=== PATIENT | female | born 1945 | race Caucasian/White ===

== ENCOUNTER 2016-06-14 11:38 | Emergency (ER) | payer OTHER ==
[2016-06-14 11:43] VITALS: BP 138/57; BMI 21.6
--- NOTE | 2016-06-14 12:46 | DR.GENAD ---
HPI - PCP Primary Care Physician: PRANAV - HPI Comment HPI Comment: patients medication prescribe keeps pain under control. she is weak , not eating good and feel dehydrated. no fever. - Complaint/Symptoms Chief Complaint Doctors Comments: generalize weakness and fatigue and dehydration. rib pain/rt Chief Complaint:: PATIENT STATED SHE HAS NOT BEEN ABLE TO EAT DUE TO HER PAIN IN HER RIBS. SHE GOT HER PAIN MEDS FILLED YESTERDAY WITH DR GEORGES. - Nurses notes reviewed Nurses Notes Review: Yes - Source History Provided: Patient - Mode of Arrival Mode of Arrival: Ambulatory - Timing Onset of Chief Complaint: 06/11/16 Came on: Gradually - Duration Duration: Constant Duration: Days - Severity Severity: Moderate PMH - PMH Past Medical History: Yes Past Medical History: Arthritis Past Surgical History: Yes Surgical History: Cholecystectomy - Family History History of Family Medical Conditions: Yes Family Medical History: Cancer, Heart Failure, Hypertension - Social History Does patient currently use any type of tobacco product: No Have you used tobacco products in the last 12 months: No Type of Tobacco Use: None Does any household member use tobacco: No Alcohol Use: None Do you use any recreational Drugs:: No Lives With: Family Lives Where: Home - infectious screening In the last 2 months have you had wt loss of >10#?: NO Have you had fever, night sweats or hemotysis?: No Have you traveled outside the country in the last 6 months?: No Isolation: Standard ROS - Review of Systems Constitutional: Weakness, Fatigue, Loss of Appetite. negative: Chills, Fever Eyes: No Symptoms Reported. negative: Eye Pain, Blurred Vision, Discharge, Diplopia ENTM: No Symptoms Reported. negative: Ear Pain, Nose Discharge, Nose Congestion , Throat Pain Respiratoy: Dry Cough. negative: Short of Breath, Wheezing, Hemoptysis Cardiovascular: Chest Pain. negative: Syncope Gastrointestinal/Abdominal: No Symptoms Reported Genitourinary: No Symptoms Reported Neurological: Weakness, Dizziness. negative: Headache Musculoskeletal: Muscle Pain Integumentary: No Symptoms Reported Hematologic/Lymphatic: No Symptoms Reported Endocrine: No Symptoms Reported All Other Systems: Reviewed and Negative PE - Vital Signs Vitals: Temperature 98.6 F Pulse Rate 96 Respiratory Rate 16 Blood Pressure 138/57 O2 Sat by Pulse Oximetry 99 - General Limitations: No Limitations General Appearance: Alert - Head Head Exam: Normal Inspection - Eyes Eye exam: Normal Appearance - ENT ENT Exam: Normal External Ear Exam External Ear Exam: Normal External Inspection TM/Canal Exam: Bilateral Normal Nose Exam: Normal Nose Exam Mouth Exam: Normal Inspection Throat Exam: Normal Inspection - Neck Neck Exam: Normal Inspection - Chest Chest Inspection: Symmetric Chest Wall Rise - Respiratory Respiratory Exam: Normal Lung Sounds Bilat, Chest Wall Tenderness Respiratory Exam: Bilateral Rhonchi, Lower Rhonchi - Cardiovascular Cardiovascular Exam: Regular Rate, Normal Rhythm, Normal Heart Sounds - Abdominal Exam Abdominal Exam: Normal Bowel Sounds, Soft. negative: Tenderness - Extremities Extremities Exam: Normal Inspection - Back Back Exam: Normal Inspection, Tenderness (upper right back) - Neurologic Neurological Exam: Alert, Oriented X3 - Psychiatric Psychiatric Exam: Normal Affect, Normal Mood - Skin Skin Exam: Dry MDM - Differential Diagnosis Differential Diagnosis: weakness/generalize, dehydration, chest wall pain Course - Treatment Treatment: see orders. - Education/Counseling Education/Counseling: Patient, Education Educated On: Diagnosis, Needs for Follow Up ROR - Labs Reviewed Laboratory Results Reviewed?: Yes Result Diagrams: 06/14/16 13:10 06/14/16 13:10 Laboratory: WBC 6.8 X10^3/uL (3.6-10.0) 06/14/16 13:10 RBC 4.91 X10^6/uL (3.5-5.4) 06/14/16 13:10 Hgb 14.5 g/dL (12.0-16.0) 06/14/16 13:10 Hct 43.0 % (36.0-47.0) 06/14/16 13:10 MCV 87.5 fL (80.0-100.0) 06/14/16 13:10 MCH 29.5 pg (27.0-34.0) 06/14/16 13:10 MCHC 33.7 g/dL (33.0-35.0) 06/14/16 13:10 RDW 14.1 % (11.6-16.5) 06/14/16 13:10 Plt Count 333 X10^3/uL (150.0-450.0) 06/14/16 13:10 MPV 7.6 fL (7.4-11.0) 06/14/16 13:10 Neut % 62.0 % (42.0-75.0) 06/14/16 13:10 Lymph % 25.3 % (21.0-51.0) 06/14/16 13:10 [place] % 7.2 % (0.0-13.0) 06/14/16 13:10 Eos % 2.2 % (0.9-2.9) 06/14/16 13:10 Baso % 3.3 % (0.2-1.0) H 06/14/16 13:10 Neut # 4.2 x10^3/uL (2.2-4.8) 06/14/16 13:10 Lymph # 1.7 X10^3/uL (1.3-2.9) 06/14/16 13:10 [place] # 0.5 x10^3/uL (0.3-0.8) 06/14/16 13:10 Eos # 0.1 x10^3/uL (0.0-0.2) 06/14/16 13:10 Baso # 0.2 X10^3/uL (0.0-0.1) H 06/14/16 13:10 Absolute Nucleated RBC 0.1 /100WBC 06/14/16 13:10 Sodium 139 mmol/L (136-145) 06/14/16 13:10 Corrected Sodium TNP 06/14/16 13:10 Potassium 3.5 mmol/L (3.5-5.1) 06/14/16 13:10 Chloride 103 mmol/L (98-107) 06/14/16 13:10 Carbon Dioxide 27.0 mmol/L (21-32) 06/14/16 13:10 BUN 20 mg/dL (7-18) H 06/14/16 13:10 Creatinine 0.97 mg/dL (0.55-1.02) 06/14/16 13:10 Est GFR (MDRD) Af Amer > 60 (>60) 06/14/16 13:10 Est GFR (MDRD) Non-Af 60 (>60) 06/14/16 13:10 Glucose 89 mg/dL (65-99) 06/14/16 13:10 Calcium 9.4 mg/dL (8.5-10.1) 06/14/16 13:10 Corrected Calcium TNP 06/14/16 13:10 Total Bilirubin 0.30 mg/dL (0.2-1.0) 06/14/16 13:10 AST 23 Units/L (15-37) 06/14/16 13:10 ALT 26 Units/L (12-78) 06/14/16 13:10 Alkaline Phosphatase 82 Units/L (46-116) 06/14/16 13:10 Creatine Kinase 34 Units/L (26-192) 06/14/16 13:10 CK-MB (CK-2) < 1.0 ng/mL (0-4.0) 06/14/16 13:10 CK/CKMB % Calc 2.9 % (<4) 06/14/16 13:10 Troponin I < 0.02 ng/mL (0-1.5) 06/14/16 13:10 Total Protein 7.6 g/dL (6.4-8.2) 06/14/16 13:10 Albumin 3.6 g/dL (3.4-5.0) 06/14/16 13:10 Globulin 4.0 g/dL (2.5-4.5) 06/14/16 13:10 Albumin/Globulin Ratio 0.9 Ratio (1.1-2.1) L 06/14/16 13:10 Specimen Type Clean catch urine 06/14/16 15:05 Urine Color Yellow (YELLOW) 06/14/16 15:05 Urine Appearance Clear (CLEAR) 06/14/16 15:05 Urine pH 5.0 (5.0 - 8.0) 06/14/16 15:05 Ur Specific [place] 1.015 (1.000-1.030) 06/14/16 15:05 Urine Protein Negative (NEGATIVE) 06/14/16 15:05 Urine Glucose (UA) Negative (NEGATIVE) 06/14/16 15:05 Urine Ketones 1+ (NEGATIVE) 06/14/16 15:05 Urine Occult Blood Negative (NEGATIVE) 06/14/16 15:05 Urine Nitrite Negative (NEGATIVE) 06/14/16 15:05 Urine Bilirubin Negative (NEGATIVE) 06/14/16 15:05 Urine Urobilinogen Normal (NORMAL) 06/14/16 15:05 Ur Leukocyte Esterase Negative (NEGATIVE) 06/14/16 15:05 Urine RBC 0-2 /HPF (NEGATIVE) 06/14/16 15:05 Urine WBC 0-2 /HPF (NEGATIVE) 06/14/16 15:05 Ur Squamous Epith Cells Rare /HPF (NEGATIVE) 06/14/16 15:05 Urine Bacteria Trace /HPF (NEGATIVE) 06/14/16 15:05 Ur Culture Indicated? No/not indicated 06/14/16 15:05 - XRAY XRAY Interpreted by: Radiologist XRAY Findings: report discuss with patient. - EKG Rhythm: NSR (ekg noted), PACs - Diagnosis Discharge Problem: Dehydration, Weakness, Chest wall pain Rib fractures Qualifiers: Encounter type: subsequent encounter Rib fracture type: multiple ribs Fracture type: closed Laterality: right Fracture healing: with routine healing Qualified Code(s): S22.41XD - Multiple fractures of ribs, right side, subsequent encounter for fracture with routine healing - Discharge Plan Disposition: 01 HOME, SELF-CARE Condition: Stable - Follow ups/Referrals Follow ups/Referrals: CARINA BAUTISTA [Primary Care Provider] - 2 days - Instructions Instructions: Dehydration, Adult, Rib Fracture, [id number], Weakness, Easy-to -Read, Chest Wall Pain, [id number] Additional Instructions: RETURN TO ED IF WORSE. CONTINUE WITH MEDS YOU HAVE AT HOME.
[2016-06-14] MEDS ORDERED: NS 1000 ML 1,000 ML IV SCH (13:00)
[2016-06-14] MEDS ORDERED: NS 1000 ML 1,000 ML ONE (13:13)
[2016-06-14 13:26] LABS: BASOPHILS # (AUTO) 0.2 X10^3/uL (0.0-0.1); BASOPHILS % (AUTO) 3.3 % (0.2-1.0); EOSINOPHILS # (AUTO) 0.1 x10^3/uL (0.0-0.2); EOSINOPHILS % (AUTO) 2.2 % (0.9-2.9); HEMOGLOBIN 14.5 g/dL (12.0-16.0); LYMPHOCYTES # (AUTO) 1.7 X10^3/uL (1.3-2.9); LYMPHOCYTES % (AUTO) 25.3 % (21.0-51.0); MEAN CORPUSCULAR HEMOGLOBIN 29.5 pg (27.0-34.0); MEAN CORPUSCULAR HGB CONC 33.7 g/dL (33.0-35.0); MEAN CORPUSCULAR VOLUME 87.5 fL (80.0-100.0); MEAN PLATELET VOLUME 7.6 fL (7.4-11.0); MONOCYTES # (AUTO) 0.5 x10^3/uL (0.3-0.8); MONOCYTES % (AUTO) 7.2 % (0.0-13.0); NEUTROPHILS # (AUTO) 4.2 x10^3/uL (2.2-4.8); PLATELET COUNT 333 X10^3/uL (150.0-450.0); RED BLOOD COUNT 4.91 X10^6/uL (3.5-5.4); RED CELL DISTRIBUTION WIDTH 14.1 % (11.6-16.5); WHITE BLOOD COUNT 6.8 X10^3/uL (3.6-10.0)
[2016-06-14 13:38] LABS: BLOOD UREA NITROGEN 20 mg/dL (7-18); CALCIUM 9.4 mg/dL (8.5-10.1); CHLORIDE 103 mmol/L (98-107); CREATININE 0.97 mg/dL (0.55-1.02); GLUCOSE 89 mg/dL (65-99); SODIUM 139 mmol/L (136-145); TROPONIN I < 0.02 ng/mL (0-1.5); eGFR BLACK RACES > 60 (>60); eGFR NON BLACK RACES 60 (>60)
[2016-06-14 13:43] LABS: ALANINE AMINOTRANSFERASE 26 Units/L (12-78); ALBUMIN 3.6 g/dL (3.4-5.0); ALKALINE PHOSPHATASE 82 Units/L (46-116); ASPARTATE AMINO TRANSFERASE 23 Units/L (15-37); CKMB % 2.9 % (<4); CREATINE KINASE 34 Units/L (26-192); CREATINE KINASE MB < 1.0 ng/mL (0-4.0); TOTAL PROTEIN 7.6 g/dL (6.4-8.2)
--- NOTE | 2016-06-14 13:59 | RAD ---
Examination: Chest x-ray. Clinical history: Fall on 06/03/2016 with diagnosis of rib fracture, complaining of nausea, weakness, dehydration. Technique: A single portable AP view of the chest was obtained. Comparison: 06/03/2016. Findings: The cardiac and mediastinal contours are within normal limits. No pneumothorax or pleural effusion is noted. The lungs are clear. There are mildly displaced fractures of the posterior right 5th, 6th, 7th and 8th ribs, with no asso ciated periosteal reaction or callus formation noted at the fracture sites. Degenerative changes are noted in the spine. Impression: 1. No acute cardiopulmonary pathology. 2. Fractures of the posterior right 5th, 6th, 7th and 8th ribs. Reported By:
[2016-06-14 15:34] LABS: APPEARANCE,URINE CLEAR (CLEAR); BILIRUBIN,URINE NEGATIVE (NEGATIVE); BLOOD/HEMOGLOBIN,URINE NEGATIVE (NEGATIVE); COLOR,URINE YELLOW (YELLOW); GLUCOSE, URINE NEGATIVE (NEGATIVE); KETONES,URINE 1+ (NEGATIVE); LEUKOCYTE ESTERASE ,URINE NEGATIVE (NEGATIVE); NITRITES,URINE NEGATIVE (NEGATIVE); PROTEIN,URINE NEGATIVE (NEGATIVE); RBC,URINE 0-2 /HPF (NEGATIVE); UROBILINOGEN,URINE NORMAL (NORMAL)
[2016-06-14 15:35] LABS: BACTERIA,URINE TRACE /HPF (NEGATIVE); SQUAMOUS EPITHELIAL CELL,UR RARE /HPF (NEGATIVE)
== END 2016-06-14 16:06 | disposition home or self-care (01) ==
LOC: ER 11:38
DX: S22.41XD Multiple fractures of ribs, right side, subsequent encounter for fracture with routine healing (principal); R07.89 Other chest pain; R53.1 Weakness; E86.0 Dehydration; Y33.XXXA Other specified events, undetermined intent, initial encounter; Y92.9 Unspecified place or not applicable
CPT/HCPCS: 36415; 71010; 80053; 81001; 82550; 82553; 84484; 85025; 93005; 93010; 96365; 99283; A4222

== ENCOUNTER 2017-04-17 18:26 | Emergency (ER) | payer OTHER ==
[2017-04-17 18:31] VITALS: BMI 22.1
--- NOTE | 2017-04-17 21:58 | DR.GENAD ---
HPI - PCP Primary Care Physician: tamera - Complaint/Symptoms Chief Complaint Doctors Comments: Patient was started on Tamiflu on last secondary to family member with influenza. Today she started taking antibiotics for sinus infection and cough and congestion. She denies fever, vomiting or diarrhea. Chief Complaint:: c/c/c since yesterday pt took tamiflu last week finished it today - Source History Provided: Patient - Mode of Arrival Mode of Arrival: Ambulatory - Timing Onset of Chief Complaint: 04/16/17 PMH - PMH Past Medical History: Yes Past Medical History: Arthritis, GERD Past Surgical History: Yes Surgical History: Cholecystectomy - Family History History of Family Medical Conditions: Yes Family Medical History: Cancer, Heart Failure, Hypertension - Social History Do you use any recreational Drugs:: No Lives With: Family Lives Where: Home - infectious screening In the last 2 months have you had wt loss of >10#?: NO Have you had fever, night sweats or hemotysis?: No Have you traveled outside the country in the last 6 months?: No Isolation: Standard ROS - Review of Systems Constitutional: No Symptoms Reported Eyes: No Symptoms Reported ENTM: No Symptoms Reported Respiratoy: Non-Productive Cough Cardiovascular: No Symptoms Reported Gastrointestinal/Abdominal: No Symptoms Reported Genitourinary: No Symptoms Reported Neurological: No Symptoms Reported Musculoskeletal: No Symptoms Reported Integumentary: No Symptoms Reported Hematologic/Lymphatic: No Symptoms Reported Endocrine: No Symptoms Reported Psychiatric: No Symptoms Reported All Other Systems: Reviewed and Negative PE - Vital Signs Vitals: Temperature 99.1 F Pulse Rate 86 Respiratory Rate 18 Blood Pressure 118/57 O2 Sat by Pulse Oximetry 99 - General Limitations: No Limitations General Appearance: Alert, In No Apparent Distress - Head Head Exam: Normal Inspection, Atraumatic - Eyes Eye exam: Normal Appearance, PERRL, EOMI - ENT ENT Exam: Normal Exam External Ear Exam: Normal External Inspection TM/Canal Exam: Bilateral Normal Nose Exam: Other (rhinorrhea) Mouth Exam: Normal Inspection Throat Exam: Normal Inspection - Neck Neck Exam: Normal Inspection, Full ROM - Chest Chest Inspection: Normal Inspection, Symmetric Chest Wall Rise - Respiratory Respiratory Exam: Normal Lung Sounds Bilat, Accessory Muscle Use - Cardiovascular Cardiovascular Exam: Regular Rate, Normal Rhythm - Abdominal Exam Abdominal Exam: Normal Inspection, Normal Bowel Sounds Abdominal Tenderness: negative: RUQ, RLQ, LUQ, LLQ, Epigastrium, Suprapubic, Diffuse, Mild, Moderate, Severe, Other - Extremities Extremities Exam: Normal Inspection, Full ROM - Back Back Exam: Normal Inspection - Neurologic Neurological Exam: Alert, Oriented X3, CN II-XII Intact - Psychiatric Psychiatric Exam: Normal Affect, Normal Mood - Skin Skin Exam: Warm, Dry, Intact Course - Reevaluation 1st: Unchanged ROR - XRAY XRAY Interpreted by: Radiologist (Chest: No cardiopulmonary abnormality) - Diagnosis Discharge Problem: Sinus infection Qualifiers: Sinusitis location: maxillary Chronicity: subacute Qualified Code(s): J01.00 - Acute maxillary sinusitis, unspecified - Discharge Plan Condition: Stable - Follow ups/Referrals Follow ups/Referrals: NFD,None [Primary Care Provider] - 3 days - Instructions
--- NOTE | 2017-04-17 22:04 | RAD ---
CHEST RADIOGRAPHS PA AND LATERAL VIEWS CLINICAL HISTORY: 71-year-old female with cough and congestion with fever. COMPARISON: Chest radiograph 06/14/2016. FINDINGS: The cardiopericardial silhouette is stable. There is no focal consolidation, pleural effus ion or pneumothorax. The lungs are well inflated. Pulmonary vascularity is normal. Imaged osseous str uctures are intact. Soft tissues are unremarkable. IMPRESSION: No acute cardiopulmonary process. Reported By:
[2017-04-17] MEDS ORDERED: ROCEPHIN VIAL 1 GM IM ONE (22:26)
[2017-04-17] MEDS ORDERED: ROCEPHIN VIAL 1 GM ONE (22:28)
[2017-04-17 22:44] VITALS: BP 161/70
== END 2017-04-17 22:44 | disposition home or self-care (01) ==
LOC: ER 18:36
DX: J01.80 Other acute sinusitis (principal)
CPT/HCPCS: 71046; 96372; 99282; J0696

== ENCOUNTER 2024-06-25 11:24 | Inpatient (IN) ==
[2024-06-25] MEDS: NS 1,000 ML IV 1,000 ML IV ONE ×2 (12:01→13:18)
[2024-06-25 12:15] LABS: BASOPHILS # (AUTO) 0.1 X10^3/uL (0.0-0.1); BASOPHILS % (AUTO) 0.7 % (0.2-1.0); EOSINOPHILS # (AUTO) 0.1 x10^3/uL (0.0-0.2); EOSINOPHILS % (AUTO) 0.4 % (0.9-2.9); HEMATOCRIT 23.6 % (36.0-47.0); LYMPHOCYTES # (AUTO) 0.5 X10^3/uL (1.3-2.9); LYMPHOCYTES % (AUTO) 3.3 % (21.0-51.0); MEAN CORPUSCULAR HEMOGLOBIN 29.5 pg (27.0-34.0); MEAN CORPUSCULAR HGB CONC 33.8 g/dL (33.0-35.0); MEAN CORPUSCULAR VOLUME 87.2 fL (80.0-100.0); MEAN PLATELET VOLUME 7.1 fL (7.4-11.0); MONOCYTES # (AUTO) 0.8 x10^3/uL (0.3-0.8); MONOCYTES % (AUTO) 5.7 % (0.0-13.0); NEUTROPHILS # (AUTO) 12.6 x10^3/uL (2.2-4.8); NEUTROPHILS % (AUTO) 89.9 % (42.0-75.0); PLATELET COUNT 562 X10^3/uL (150.0-450.0); RED CELL DISTRIBUTION WIDTH 13.8 % (11.6-16.5)
[2024-06-25 12:27] LABS: ALBUMIN 2.1 g/dL (3.4-5.0); CARBON DIOXIDE 19.8 mmol/L (21-32); COR CA(FOR HYPOALB) 10.5 mg/dL (8.5-10.1); CREATININE 6.39 mg/dL (0.55-1.02); MAGNESIUM 2.8 mg/dL (2.0-2.9); TOTAL PROTEIN 6.9 g/dL (6.4-8.2)
[2024-06-25] MEDS ORDERED: NS 1,000 ML IV 1,000 ML ONE (13:14)
--- NOTE | 2024-06-25 13:18 | CT ---
EXAMINATION:ABDOMEN/PELVIS W/O CONHISTORY:Acute Kidney Failure, n/v; recent hip surgery .COMPARISON:None.TECHNIQUE:Unenhanced axial images were obtained through the abdomen and pelvis using renal stone protocol. Reformatted images were obtained as well. Lack of oral and IV contrast limits diagnostic sensitivityThe above CT scan was done with automated exposure control and the mA and kV was adjusted to obtain quality images according to patient size.FINDINGS:Lung bases: There is atelectasis in the lung bases. Small right effusion. Trace pleural fluid on the leftLiver: No acute finding or focal lesion.GB/Biliary: Cholecystectomy. No dilated ductSpleen: Normal size and densityPancreas: No acute findings. No pseudocyst or dilated duct. Excessive respiratory motion limits evaluation.Adrenal Glands: No massKidneys: Marked hydroureteronephrosis with stranding to the level of the bladder. Markedly distended bladder. No obstructing stone or solid-appearing lesions.Abdominal aorta: Tapers normally. Extensive atherosclerotic calcification present.Retroperitoneum: No pathologically enlarged lymph nodes. Evaluation limited by lack of contrast.Bowel: Large amount of stool in the colon. Fecal impaction. No thickened or dilated loops of bowel, free fluid, free air, pneumatosis or abscess. No CT evidence for appendicitis, diverticulitis or obstruction.Bladder/: Markedly distended bladder. Consider Ventura catheter placement. Atrophic uterus. No pelvic or adnexal mass noted.Osseous: ORIF of intertrochanteric fracture streak artifact from hardware. Vertebral body heights and alignment are maintained throughout. No acute findings or bony lesions. Soft tissue edema about the right hip may represent recent surgery. Anasarca. Dependent edema posteriorlyIMPRESSION:Markedly distended bladder with back pressure hydroureteronephrosis. Consider Ventura catheter placementNo CT evidence for solid lesion or obstructing stone.Constipation. No CT evidence for appendicitis, diverticulitis or obstruction. Anasarca.THIS IS AN ELECTRONICALLY VERIFIED FINAL REPORT06/25/2024 1:14 PM - Electronically signed by Jossue Sunshine MD
[2024-06-25 13:19] LABS: BILIRUBIN,URINE NEGATIVE (NEGATIVE); BLOOD/HEMOGLOBIN,URINE 5+ (NEGATIVE); GLUCOSE, URINE NEGATIVE (NEGATIVE); KETONES,URINE NEGATIVE (NEGATIVE); LEUKOCYTE ESTERASE ,URINE 3+ (NEGATIVE); NITRITES,URINE NEGATIVE (NEGATIVE); PROTEIN,URINE 3+ (NEGATIVE); UROBILINOGEN,URINE NORMAL (NORMAL)
[2024-06-25 13:25] LABS: APPEARANCE,URINE CLOUDY (CLEAR); BACTERIA,URINE 2+ /HPF (NEGATIVE); COLOR,URINE DARK YELLOW (YELLOW); RBC,URINE 30-50 /HPF (0-3); SQUAMOUS EPITHELIAL CELL,UR RARE /HPF (NEGATIVE)
--- NOTE | 2024-06-25 13:28 | EKG ---
Test Reason : Dyspnea Blood Pressure : */* mmHG Vent. Rate : 105 BPM Atrial Rate : 105 BPM P-R Int : 148 ms QRS Dur : 80 ms QT Int : 330 ms P-R-T Axes : 72 56 77 degrees QTc Int : 436 ms Sinus tachycardia Possible Anterior infarct , age undetermined Abnormal ECG No previous ECGs available Confirmed by Thomas Rod MD ([id number]) on 06/26/2024 7:28:42 AM Referred By: Confirmed By: Thomas Rod MD
[2024-06-25] MEDS: ROCEPHIN VIAL 1 GRAM 1 G in NS 100 ML IV 100 ML IV ONE (13:51)
[2024-06-25] MEDS: SODIUM BICARBONATE 8.4% INJ ADULT IVP ONE (14:04)
[2024-06-25] MEDS: NovoLIN R (or HumuLIN R) IV ONE (14:05)
[2024-06-25] MEDS: CALCIUM GLUCONATE 10% 1 G in NS 100 ML IV 100 ML IV ONE (14:05)
[2024-06-25] MEDS: D50W ABBOJECT SYR IV ONE (14:05)
--- NOTE | 2024-06-25 14:26 | DR.URINEF ---
HPI Time Seen Time Seen by Provider: 06/25/24 11:45 PCP Primary Care Physician: Complaint Chief Complaint Doctors Comments: 78 yo F, s/p R hip fracture with surgical repair, comes to ER for AMS. Pt has been in group home for rehab following R hip surgery. senior living noticed strange behavior, ran bloodwork showing VALERIO, hyperkalemia and hyponatremia. Daughter and son at bedside state that pt seems confused & weak today compared to baseline. Denies other complaints. Chief Complaint:: pt was brought by group home staff with complaints of pt being more weak for the past two days and has become more lethargic today. COVID-19 Coronavirus risk:travel/contact w/high risk person: No Has patient experienced Coronavirus symptoms: No Source History Provided: Snf Mode of Arrival Mode of Arrival: Wheelchair Timing Onset of Chief Complaint: 06/23/24 PMH PMH Past Medical History: Yes Past Medical History: Anxiety, Arthritis, COPD and GERD Past Medical History Comment: polyneuropathy Past Surgical History: Yes Surgical History: Cholecystectomy Family History History of Family Medical Conditions: Yes Family Medical History: Cancer, Heart Failure and Hypertension Social History Type of Tobacco Use: None Alcohol Use: None Do you use any recreational Drugs:: No Lives With: Other Lives Where: Snf Travel Risk Coronavirus risk:travel/contact w/high risk person: No Has patient experienced Coronavirus symptoms: No Infectious screening Have you traveled outside the country in the last 6 months?: No Isolation: Standard ROS Review of Systems Neurological: Other (Confusion) All Other Systems: Reviewed and Negative PE Vital Signs Vitals: Vital Signs Temperature 97.7 F Pulse Rate 107 Pulse Rate 106 Pulse Rate 104 Pulse Rate 104 Pulse Rate 112 Pulse Rate 105 Pulse Rate 101 Pulse Rate 108 Pulse Rate 97 Pulse Rate 102 Pulse Rate 102 Respiratory Rate 17 Respiratory Rate 15 Respiratory Rate 18 Respiratory Rate 18 Respiratory Rate 25 Respiratory Rate 19 Respiratory Rate 18 Respiratory Rate 31 Respiratory Rate 16 Respiratory Rate 16 Respiratory Rate 18 Blood Pressure 131/58 Blood Pressure 147/66 Blood Pressure 151/63 Blood Pressure 143/60 Blood Pressure 121/56 Blood Pressure 152/65 O2 Sat by Pulse Oximetry 93 O2 Sat by Pulse Oximetry 96 O2 Sat by Pulse Oximetry 96 O2 Sat by Pulse Oximetry 95 O2 Sat by Pulse Oximetry 96 O2 Sat by Pulse Oximetry 96 General Limitations: No Limitations General Appearance: Alert and In No Apparent Distress Eyes Eye exam: Normal Appearance ENT ENT Exam: Normal Exam Neck Neck Exam: Normal Inspection Chest Chest Inspection: Normal Inspection Respiratory Respiratory Exam: Normal Lung Sounds Bilat Respiratory Exam: Bilateral: Clear to Auscultation Cardiovascular Cardiovascular Exam: Regular Rate and Normal Rhythm Abdominal Exam Abdominal Exam: Normal Inspection, Normal Bowel Sounds and Soft Rectal Rectal Exam: Deferred Genitourinary External Exam: Female: Deferred : Speculum Exam (Female): Deferred : Bimanual Exam (female): Deferred Extremities Extremities Exam: Normal Inspection Back Back Exam: Normal Inspection Neurologic Neurological Exam: Alert and Oriented X3 Psychiatric Psychiatric Exam: Normal Affect and Normal Mood Skin Skin Exam: Warm, Dry, Intact and Normal Color ROR Labs Reviewed Laboratory Results Reviewed?: Yes 06/25/24 11:56 06/25/24 11:56 Laboratory: WBC 14.0 X10^3/uL (3.6-10.0) H 06/25/24 11:56 RBC 2.70 X10^6/uL (3.5-5.4) L 06/25/24 11:56 Hgb 8.0 g/dL (12.0-16.0) L 06/25/24 11:56 Hct 23.6 % (36.0-47.0) L 06/25/24 11:56 MCV 87.2 fL (80.0-100.0) 06/25/24 11:56 MCH 29.5 pg (27.0-34.0) 06/25/24 11:56 MCHC 33.8 g/dL (33.0-35.0) 06/25/24 11:56 RDW 13.8 % (11.6-16.5) 06/25/24 11:56 Plt Count 562 X10^3/uL (150.0-450.0) H 06/25/24 11:56 MPV 7.1 fL (7.4-11.0) L 06/25/24 11:56 Neut % (Auto) 89.9 % (42.0-75.0) H 06/25/24 11:56 Lymph % (Auto) 3.3 % (21.0-51.0) L 06/25/24 11:56 [place] % (Auto) 5.7 % (0.0-13.0) 06/25/24 11:56 Eos % (Auto) 0.4 % (0.9-2.9) L 06/25/24 11:56 Baso % (Auto) 0.7 % (0.2-1.0) 06/25/24 11:56 Neut # (Auto) 12.6 x10^3/uL (2.2-4.8) H 06/25/24 11:56 Lymph # (Auto) 0.5 X10^3/uL (1.3-2.9) L 06/25/24 11:56 [place] # (Auto) 0.8 x10^3/uL (0.3-0.8) 06/25/24 11:56 Eos # (Auto) 0.1 x10^3/uL (0.0-0.2) 06/25/24 11:56 Baso # (Auto) 0.1 X10^3/uL (0.0-0.1) 06/25/24 11:56 Absolute Nucleated RBC 0.1 /100WBC 06/25/24 11:56 Sodium 122 mmol/L (136-145) L* 06/25/24 11:56 Corrected Sodium 122 mmol/L (136-145) L 06/25/24 11:56 Potassium 6.0 mmol/L (3.5-5.1) H* 06/25/24 11:56 Chloride 91 mmol/L (98-107) L 06/25/24 11:56 Carbon Dioxide 19.8 mmol/L (21-32) L 06/25/24 11:56 BUN 74 mg/dL (7-18) H 06/25/24 11:56 Creatinine 6.39 mg/dL (0.55-1.02) H 06/25/24 11:56 Est GFR (MDRD) Af Amer 8 (>60) L 06/25/24 11:56 Est GFR (MDRD) Non-Af 7 (>60) L 06/25/24 11:56 Glucose 117 mg/dL (65-99) H 06/25/24 11:56 Lactic Acid 1.0 mmol/L (0.4-2.0) 06/25/24 11:56 Calcium 9.0 mg/dL (8.5-10.1) 06/25/24 11:56 Corrected Calcium 10.5 mg/dL (8.5-10.1) H 06/25/24 11:56 Magnesium 2.8 mg/dL (2.0-2.9) 06/25/24 11:56 Total Bilirubin 0.50 mg/dL (0.2-1.0) 06/25/24 11:56 AST 42 Units/L (15-37) H 06/25/24 11:56 ALT 14 Units/L (12-78) 06/25/24 11:56 Alkaline Phosphatase 129 Units/L (46-116) H 06/25/24 11:56 Total Protein 6.9 g/dL (6.4-8.2) 06/25/24 11:56 Albumin 2.1 g/dL (3.4-5.0) L 06/25/24 11:56 Globulin 4.8 g/dL (2.5-4.5) H 06/25/24 11:56 Albumin/Globulin Ratio 0.4 Ratio (1.1-2.1) L 06/25/24 11:56 Lipase 14 Units/L (16-77) L 06/25/24 11:56 Specimen Type Catherized urine 06/25/24 13:05 Urine Color Dark yellow (YELLOW) 06/25/24 13:05 Urine Appearance Cloudy (CLEAR) 06/25/24 13:05 Urine pH 8.0 (5.0 - 8.0) 06/25/24 13:05 Ur Specific [place] 1.015 (1.000-1.030) 06/25/24 13:05 Urine Protein 3+ (NEGATIVE) 06/25/24 13:05 Urine Glucose (UA) Negative (NEGATIVE) 06/25/24 13:05 Urine Ketones Negative (NEGATIVE) 06/25/24 13:05 Urine Blood 5+ (NEGATIVE) 06/25/24 13:05 Urine Nitrite Negative (NEGATIVE) 06/25/24 13:05 Urine Bilirubin Negative (NEGATIVE) 06/25/24 13:05 Urine Urobilinogen Normal (NORMAL) 06/25/24 13:05 Ur Leukocyte Esterase 3+ (NEGATIVE) 06/25/24 13:05 Urine RBC 30-50 /HPF (0-3) A 06/25/24 13:05 Urine WBC 30-50 /HPF (0-5) A 06/25/24 13:05 Ur Squamous Epith Cells Rare /HPF (NEGATIVE) 06/25/24 13:05 Amorphous Sediment 1+ /HPF (NEGATIVE) 06/25/24 13:05 Urine Bacteria 2+ /HPF (NEGATIVE) 06/25/24 13:05 Ur Culture Indicated? Yes/culture set up 06/25/24 13:05 Opioid Opioid Risk Tool Age ([place] box if 16-45): No History of Preadolescent Sexual Abuse: No Total: 0 Total Score Risk Category: Low Risk Copyright: [employer] LR predicting aberrant behaviors Discharge Plan Diagnosis Discharge Problem: VALERIO (acute kidney injury), Acute hyperkalemia, Acute hyponatremia, Bladder outlet obstruction, Acute UTI Discharge Plan Patient Disposition: ADMITTED INPATIENT Condition: Stable Prescriptions: No Action meclizine 25 mg tablet 25 mg PO DAILY montelukast 10 mg tablet 10 mg PO DAILY fluticasone propionate 50 mcg/actuation spray,suspension 1 spray INTRANASAL BID alprazolam 1 mg tablet 1 tab PO QID PRN omeprazole 40 mg capsule,delayed release(DR/EC) 1 cap PO QDAY oseltamivir 75 mg capsule 1 cap PO BID acetaminophen-codeine 300-60 mg tablet 1 tab PO QID PRN gabapentin 100 mg capsule 1 cap PO TID levofloxacin 500 mg tablet 1 tab PO QDAY methylprednisolone 4 mg tablets,dose pack See Rx Instructions .ROUTE .COMPLEX Rx Instructions: PER RX PRESCRIPTION ondansetron 4 mg tablet,disintegrating 1 tab PO Q8H PRN Health Concerns: Post Hospitalization: new medications and changes needed to prevent readmission or further decline. Pt educated and given instructions on all concerns. Plan of Treatment: Continue with present treatment and follow up plan. Pt is to keep follow up appointment as instructed and take medications as ordered. Orders to Discharge Patient Discharge Orders: Transfer (Routine); Ordered 06/25/24 Ordered By: Brian Burris Follow ups/Referrals Follow ups/Referrals: LIBORIO SANTIAGO [Primary Care Provider] - 3 days Instructions Stand Alone Forms: Find Help Web Site, Post Hospital Follow Up Care ADDITIONAL NOTES Additional Notes Additional Notes: Nurse able to place indwelling galvan, ~1800cc out upon p lacement. Pt admitted to Dr Santiago at this time.
--- NOTE | 2024-06-25 16:22 | EKG ---
Test Reason : Hyperkalemia Blood Pressure : */* mmHG Vent. Rate : 103 BPM Atrial Rate : 103 BPM P-R Int : 152 ms QRS Dur : 68 ms QT Int : 326 ms P-R-T Axes : 72 82 76 degrees QTc Int : 427 ms Sinus tachycardia Otherwise normal ECG When compared with ECG of 25-JUN-2024 13:23, (Unconfirmed) No significant change was found Confirmed by Thomas Rod MD ([id number]) on 06/26/2024 7:28:14 AM Referred By: Confirmed By: Thomas Rod MD
[2024-06-25] MEDS: NS 1,000 ML IV 1,000 ML IV SCH (17:33)
--- NOTE | 2024-06-25 17:42 | DR.H&P ---
H&P History & Physical for Day of: H&P Date: 06/25/24 Chief Complaint Chief Complaint: AMS, ABNORMAL OUTPT LABS History of Present Illness History of Present Illness: PT IS 78 WF, ER ADMISSION AFTER PT WAS SENT FROM [facility] FOR EVALUATION OF ACUTE ONSET CHANGE IN MENTAL STATUS AND ACUTE RENAL FAILAURE. PT IS 78 WF, AT [facility] FOLLOWING AN RIGHT HIP FRACTURE REPAIR. PT WAS SEEN ON MONDAY WITH ONLY CO MORE SHORT OF BREATH. PT HAS BUN/CREAT 1.67 ON 06/20. PT HAS BEEN ON ELIQUIS 2.5BID FOR DVT PREVENTION POST OPERATIVELY. PT ADMITTED FOR TREATMENT AND EVALUATION OF ACUTE ILLNESS. Past Medical History Past Medical History: Anxiety, Arthritis, COPD and GERD Past Surgical History Surgical History: Cholecystectomy Family History Family Medical History: Cancer Social History Does patient currently use any type of tobacco product: No Type of Tobacco Use: Cigarettes Alcohol Use: None Drug Use: None Medications Home Medications: Home Medications Medication Instructions Recorded Confirmed Type montelukast 10 mg tablet 10 mg PO HS 01/10/21 06/25/24 History acetaminophen 300 mg-codeine 60 mg 1 tab PO Q6HR 12/08/21 06/25/24 History tablet gabapentin 100 mg capsule 1 cap PO TID 12/08/21 06/25/24 History omeprazole 40 mg capsule,delayed 1 cap PO QDAY 12/08/21 06/25/24 History release apixaban 2.5 mg tablet (Eliquis) 2.5 mg PO BID 06/25/24 06/25/24 History cyclobenzaprine 10 mg tablet 10 mg PO TID 06/25/24 06/25/24 History docusate sodium 100 mg capsule 100 mg PO BID 06/25/24 06/25/24 History (Colace) ergocalciferol (vitamin D2) 25,000 50,000 unit PO USEASDIRECTD 06/25/24 06/25/24 History unit capsule Allergies Allergies Allergy/AdvReac Type Severity Reaction Status Date / Time Sulfa (Sulfonamide Allergy Verified 06/25/24 16:39 Antibiotics) [SULFA] Labs 06/25/24 11:56 06/25/24 11:56 Labs: Laboratory WBC 14.0 X10^3/uL (3.6-10.0) H 06/25/24 11:56 RBC 2.70 X10^6/uL (3.5-5.4) L 06/25/24 11:56 Hgb 8.0 g/dL (12.0-16.0) L 06/25/24 11:56 Hct 23.6 % (36.0-47.0) L 06/25/24 11:56 MCV 87.2 fL (80.0-100.0) 06/25/24 11:56 MCH 29.5 pg (27.0-34.0) 06/25/24 11:56 MCHC 33.8 g/dL (33.0-35.0) 06/25/24 11:56 RDW 13.8 % (11.6-16.5) 06/25/24 11:56 Plt Count 562 X10^3/uL (150.0-450.0) H 06/25/24 11:56 MPV 7.1 fL (7.4-11.0) L 06/25/24 11:56 Neut % (Auto) 89.9 % (42.0-75.0) H 06/25/24 11:56 Lymph % (Auto) 3.3 % (21.0-51.0) L 06/25/24 11:56 Real % (Auto) 5.7 % (0.0-13.0) 06/25/24 11:56 Eos % (Auto) 0.4 % (0.9-2.9) L 06/25/24 11:56 Baso % (Auto) 0.7 % (0.2-1.0) 06/25/24 11:56 Neut # (Auto) 12.6 x10^3/uL (2.2-4.8) H 06/25/24 11:56 Lymph # (Auto) 0.5 X10^3/uL (1.3-2.9) L 06/25/24 11:56 Real # (Auto) 0.8 x10^3/uL (0.3-0.8) 06/25/24 11:56 Eos # (Auto) 0.1 x10^3/uL (0.0-0.2) 06/25/24 11:56 Baso # (Auto) 0.1 X10^3/uL (0.0-0.1) 06/25/24 11:56 Absolute Nucleated RBC 0.1 /100WBC 06/25/24 11:56 Sodium 122 mmol/L (136-145) L* 06/25/24 11:56 Corrected Sodium 122 mmol/L (136-145) L 06/25/24 11:56 Potassium 6.0 mmol/L (3.5-5.1) H* 06/25/24 11:56 Chloride 91 mmol/L (98-107) L 06/25/24 11:56 Carbon Dioxide 19.8 mmol/L (21-32) L 06/25/24 11:56 BUN 74 mg/dL (7-18) H 06/25/24 11:56 Creatinine 6.39 mg/dL (0.55-1.02) H 06/25/24 11:56 Est GFR (MDRD) Af Amer 8 (>60) L 06/25/24 11:56 Est GFR (MDRD) Non-Af 7 (>60) L 06/25/24 11:56 Glucose 117 mg/dL (65-99) H 06/25/24 11:56 Lactic Acid 1.0 mmol/L (0.4-2.0) 06/25/24 11:56 Calcium 9.0 mg/dL (8.5-10.1) 06/25/24 11:56 Corrected Calcium 10.5 mg/dL (8.5-10.1) H 06/25/24 11:56 Magnesium 2.8 mg/dL (2.0-2.9) 06/25/24 11:56 Total Bilirubin 0.50 mg/dL (0.2-1.0) 06/25/24 11:56 AST 42 Units/L (15-37) H 06/25/24 11:56 ALT 14 Units/L (12-78) 06/25/24 11:56 Alkaline Phosphatase 129 Units/L (46-116) H 06/25/24 11:56 Total Protein 6.9 g/dL (6.4-8.2) 06/25/24 11:56 Albumin 2.1 g/dL (3.4-5.0) L 06/25/24 11:56 Globulin 4.8 g/dL (2.5-4.5) H 06/25/24 11:56 Albumin/Globulin Ratio 0.4 Ratio (1.1-2.1) L 06/25/24 11:56 Lipase 14 Units/L (16-77) L 06/25/24 11:56 Specimen Type Catherized urine 06/25/24 13:05 Urine Color Dark yellow (YELLOW) 06/25/24 13:05 Urine Appearance Cloudy (CLEAR) 06/25/24 13:05 Urine pH 8.0 (5.0 - 8.0) 06/25/24 13:05 Ur Specific [place] 1.015 (1.000-1.030) 06/25/24 13:05 Urine Protein 3+ (NEGATIVE) 06/25/24 13:05 Urine Glucose (UA) Negative (NEGATIVE) 06/25/24 13:05 Urine Ketones Negative (NEGATIVE) 06/25/24 13:05 Urine Blood 5+ (NEGATIVE) 06/25/24 13:05 Urine Nitrite Negative (NEGATIVE) 06/25/24 13:05 Urine Bilirubin Negative (NEGATIVE) 06/25/24 13:05 Urine Urobilinogen Normal (NORMAL) 06/25/24 13:05 Ur Leukocyte Esterase 3+ (NEGATIVE) 06/25/24 13:05 Urine RBC 30-50 /HPF (0-3) A 06/25/24 13:05 Urine WBC 30-50 /HPF (0-5) A 06/25/24 13:05 Ur Squamous Epith Cells Rare /HPF (NEGATIVE) 06/25/24 13:05 Amorphous Sediment 1+ /HPF (NEGATIVE) 06/25/24 13:05 Urine Bacteria 2+ /HPF (NEGATIVE) 06/25/24 13:05 Ur Culture Indicated? Yes/culture set up 06/25/24 13:05 Review of Systems Constitutional: Weakness and Malaise Eyes: No Symptoms Reported ENT: No Symptoms Reported Respiratory: Shortness of Breath Cardiovascular: No Symptoms Reported Gastrointestinal: No Symptoms Reported Genitourinary: Retention Musculoskeletal: Arm Pain Skin: Wound Neurological: Weakness and Confusion Physical Exam Vital Signs: Vital Signs Temperature 98.2 F Temperature 97.7 F Pulse Rate [Left Brachial] 106 Pulse Rate 100 Pulse Rate 104 Pulse Rate 111 Pulse Rate 126 Pulse Rate 107 Pulse Rate 106 Pulse Rate 104 Pulse Rate 104 Pulse Rate 112 Pulse Rate 105 Pulse Rate 101 Pulse Rate 108 Pulse Rate 97 Pulse Rate 102 Pulse Rate 102 Respiratory Rate 10 Respiratory Rate 17 Respiratory Rate 8 Respiratory Rate 10 Respiratory Rate 11 Respiratory Rate 26 Respiratory Rate 17 Respiratory Rate 15 Respiratory Rate 18 Respiratory Rate 18 Respiratory Rate 25 Respiratory Rate 19 Respiratory Rate 18 Respiratory Rate 31 Respiratory Rate 16 Respiratory Rate 16 Respiratory Rate 18 Blood Pressure [Left Arm] 132/62 Blood Pressure 105/54 Blood Pressure 121/60 Blood Pressure 131/58 Blood Pressure 147/66 Blood Pressure 151/63 Blood Pressure 143/60 Blood Pressure 121/56 Blood Pressure 152/65 O2 Sat by Pulse Oximetry 93 O2 Sat by Pulse Oximetry 92 O2 Sat by Pulse Oximetry 94 O2 Sat by Pulse Oximetry 91 O2 Sat by Pulse Oximetry 93 O2 Sat by Pulse Oximetry 96 O2 Sat by Pulse Oximetry 96 O2 Sat by Pulse Oximetry 95 O2 Sat by Pulse Oximetry 96 O2 Sat by Pulse Oximetry 96 Oriented: Person Eyes: Normal Ear: Normal Nose: Normal Throat: Dry Respiratory: RLL Diminished and LLL Diminished Cardiovascular: Normal : Normal Auscultation: Bowel Sounds: Normal Palpation: Normal Tenderness: Normal Skin: Decreased Turgur and Wound Musculoskeletal: Right, Hip, Back:Lumbar, Tender, Motor Deficit and Instability Psychiatric: Anxiety Speech Pattern: Delayed Assessment/Plan (1) VALERIO (acute kidney injury): Status: Acute Plan: ADMIT, EKG MONITORING IV HYDRATION WITH STRICT I&OS WITH FOSTER CATH CARE VERIFY HOME MEDICATIONS BP CONTROL, PRN SUPPLEMENTAL O2 IV ATBX THERAPY, CXR ON ADMISSION (2) Generalized weakness: Status: Acute (3) Dehydration: Status: Acute (4) Bladder outlet obstruction: Status: Acute (5) Acute hyponatremia: Status: Acute (6) AMS (altered mental status): Status: Acute
[2024-06-25 17:57] LABS: INR 1.59 (0.8-1.3)
[2024-06-25 18:49] LABS: BLOOD UREA NITROGEN 67 mg/dL (7-18); CALCIUM 9.1 mg/dL (8.5-10.1); CARBON DIOXIDE 20.8 mmol/L (21-32); CHLORIDE 96 mmol/L (98-107); CREATININE 5.12 mg/dL (0.55-1.02); GLUCOSE 89 mg/dL (65-99); POTASSIUM 5.5 mmol/L (3.5-5.1); SODIUM 128 mmol/L (136-145); eGFR NON BLACK RACES 9 (>60)
[2024-06-25] MEDS: NS 1,000 ML IV 2,000 ML IV ONE (19:10)
[2024-06-25] MEDS: MILK OF MAGNESIA PO SCH (20:35)
[2024-06-25] MEDS: COLACE CAP 100 MG PO SCH (20:35)
[2024-06-25] MEDS: SNACK - Diabetic Appropriate PO SCH (21:28)
--- NOTE | 2024-06-25 21:59 | EKG ---
Test Reason : HYPERKALEMIA Blood Pressure : */* mmHG Vent. Rate : 101 BPM Atrial Rate : 101 BPM P-R Int : 148 ms QRS Dur : 68 ms QT Int : 322 ms P-R-T Axes : 86 55 72 degrees QTc Int : 417 ms Sinus tachycardia Otherwise normal ECG When compared with ECG of 25-JUN-2024 16:04, (Unconfirmed) No significant change was found Confirmed by Thomas Rod MD ([id number]) on 06/26/2024 7:23:49 AM Referred By: Confirmed By: Thomas Rod MD
--- NOTE | 2024-06-26 04:39 | EKG ---
Test Reason : Hyperkalemia Blood Pressure : */* mmHG Vent. Rate : 95 BPM Atrial Rate : 95 BPM P-R Int : 142 ms QRS Dur : 70 ms QT Int : 336 ms P-R-T Axes : 71 32 65 degrees QTc Int : 422 ms Normal sinus rhythm Normal ECG When compared with ECG of 25-JUN-2024 21:37, (Unconfirmed) No significant change was found Confirmed by Thomas Rod MD ([id number]) on 06/26/2024 7:22:53 AM Referred By: Confirmed By: Thomas Rod MD
[2024-06-26 06:25] LABS: BASOPHILS % (AUTO) 0.6 % (0.2-1.0); EOSINOPHILS # (AUTO) 0.6 x10^3/uL (0.0-0.2); LYMPHOCYTES # (AUTO) 0.2 X10^3/uL (1.3-2.9); LYMPHOCYTES % (AUTO) 3.5 % (21.0-51.0); MEAN CORPUSCULAR HGB CONC 35.1 g/dL (33.0-35.0); MEAN CORPUSCULAR VOLUME 85.4 fL (80.0-100.0); MEAN PLATELET VOLUME 7.2 fL (7.4-11.0); MONOCYTES # (AUTO) 0.5 x10^3/uL (0.3-0.8); MONOCYTES % (AUTO) 7.4 % (0.0-13.0); NEUTROPHILS # (AUTO) 5.8 x10^3/uL (2.2-4.8); NEUTROPHILS % (AUTO) 80.5 % (42.0-75.0); PLATELET COUNT 486 X10^3/uL (150.0-450.0); RED BLOOD COUNT 2.12 X10^6/uL (3.5-5.4); RED CELL DISTRIBUTION WIDTH 13.7 % (11.6-16.5); WHITE BLOOD COUNT 7.2 X10^3/uL (3.6-10.0)
[2024-06-26 06:27] LABS: ALANINE AMINOTRANSFERASE 17 Units/L (12-78); ALBUMIN 1.6 g/dL (3.4-5.0); ALKALINE PHOSPHATASE 95 Units/L (46-116); ASPARTATE AMINO TRANSFERASE 50 Units/L (15-37); BLOOD UREA NITROGEN 48 mg/dL (7-18); CALCIUM 8.3 mg/dL (8.5-10.1); CHLORIDE 104 mmol/L (98-107); COR CA(FOR HYPOALB) 10.2 mg/dL (8.5-10.1); CREATININE 2.82 mg/dL (0.55-1.02); GLUCOSE 97 mg/dL (65-99); MAGNESIUM 2.4 mg/dL (2.0-2.9); POTASSIUM 4.8 mmol/L (3.5-5.1); SODIUM 133 mmol/L (136-145); TOTAL PROTEIN 5.3 g/dL (6.4-8.2); eGFR NON BLACK RACES 17 (>60)
[2024-06-26 06:36] LABS: HEMOGLOBIN 6.4 g/dL (12.0-16.0)
[2024-06-26 06:37] LABS: HEMATOCRIT 18.1 % (36.0-47.0)
[2024-06-26 06:44] LABS: INR 1.42 (0.8-1.3)
[2024-06-26] MEDS: PriLOSEC PO SCH (09:26)
[2024-06-26] MEDS: COLACE CAP 100 MG PO SCH (09:26)
[2024-06-26] MEDS ORDERED: KLOR-CON 10 MEQ TAB PO PRN (09:26)
[2024-06-26] MEDS ORDERED: DULCOLAX SUPPOSITORY 10 MG RECTAL ONE (09:28)
[2024-06-26] MEDS: TYLENOL #3 TAB (W/CODEINE) PO SCH (09:28)
[2024-06-26] MEDS: ROCEPHIN VIAL 1 GRAM 1 G in NS 100 ML IV 100 ML IV SCH (09:28)
--- NOTE | 2024-06-26 12:07 | VAS ---
EXAM:Bilateral lower extremity venous Doppler evaluationHISTORY:Bilateral lower extremity edemaTECHNIQUE:Multiple grayscale sonographic images were obtained. Color duplex Doppler evaluation was performed.COMPARISON:NoneFINDINGS:Bilate rally common femoral veins, superficial femoral veins, popliteal veins, and posterior tibial veins are patent demonstrating normal flow, compression, and distal augmentation.IMPRESSION:Exam negative for deep venous thrombosis bilateral lower extremitiesTHIS IS AN ELECTRONICALLY VERIFIED FINAL REPORT06/26/2024 11:59 AM - Electronically signed by Alok He MD
[2024-06-26] MEDS: NS 500 ML IV 500 ML IV ONE ×2 (14:21→14:50)
[2024-06-26] MEDS: LASIX IVP PRN (14:38)
[2024-06-26] MEDS: NEURONTIN CAP 100 MG PO SCH (14:49)
[2024-06-26] MEDS: FLEXERIL TAB 10 MG PO SCH (14:50)
[2024-06-26] MEDS ORDERED: TYLENOL #3 TAB (W/CODEINE) PO PRN (14:57)
[2024-06-26] MEDS: DULCOLAX SUPPOSITORY 10 MG PR SCH (21:02)
[2024-06-26] MEDS: SINGULAIR TAB 10 MG PO SCH (21:04)
[2024-06-27 06:23] LABS: BASOPHILS # (AUTO) 0.1 X10^3/uL (0.0-0.1); BASOPHILS % (AUTO) 0.9 % (0.2-1.0); EOSINOPHILS % (AUTO) 11.6 % (0.9-2.9); HEMATOCRIT 26.1 % (36.0-47.0); HEMOGLOBIN 9.3 g/dL (12.0-16.0); LYMPHOCYTES # (AUTO) 0.2 X10^3/uL (1.3-2.9); LYMPHOCYTES % (AUTO) 2.5 % (21.0-51.0); MEAN CORPUSCULAR HEMOGLOBIN 31.1 pg (27.0-34.0); MEAN CORPUSCULAR HGB CONC 35.6 g/dL (33.0-35.0); MEAN CORPUSCULAR VOLUME 87.2 fL (80.0-100.0); MONOCYTES # (AUTO) 0 x10^3/uL (0.3-0.8); MONOCYTES % (AUTO) 0.2 % (0.0-13.0); NEUTROPHILS # (AUTO) 7.1 x10^3/uL (2.2-4.8); NEUTROPHILS % (AUTO) 84.8 % (42.0-75.0); PLATELET COUNT 483 X10^3/uL (150.0-450.0); RED CELL DISTRIBUTION WIDTH 14.9 % (11.6-16.5); WHITE BLOOD COUNT 8.4 X10^3/uL (3.6-10.0)
[2024-06-27 06:40] LABS: ALANINE AMINOTRANSFERASE 14 Units/L (12-78); ALBUMIN 1.7 g/dL (3.4-5.0); ALKALINE PHOSPHATASE 86 Units/L (46-116); ASPARTATE AMINO TRANSFERASE 46 Units/L (15-37); BLOOD UREA NITROGEN 30 mg/dL (7-18); CALCIUM 8.2 mg/dL (8.5-10.1); CHLORIDE 105 mmol/L (98-107); CREATININE 1.42 mg/dL (0.55-1.02); GLUCOSE 83 mg/dL (65-99); POTASSIUM 4.5 mmol/L (3.5-5.1); SODIUM 138 mmol/L (136-145); TOTAL PROTEIN 5.4 g/dL (6.4-8.2); eGFR NON BLACK RACES 38 (>60)
[2024-06-27 06:59] LABS: BAND NEUTROPHILS % 4 % (0-10); BASOPHILS % (MANUAL) 1 % (0-1); PLATELET MORPHOLOGY COMMENT NORMAL (NORMAL)
--- NOTE | 2024-06-27 07:58 | RAD ---
EXAM:Portable chestHISTORY:Shortness of breathCOMPARISON:12/30/2021FINDINGS:Hear t size is normal. Alpa are normal. Lung hull are mildly hyperinflated but free of acute infiltrates. No congestive heart failure identified. No pleural effusion or pneumothoraces identified. Bony thorax is unremarkable with exception of old healed rib fractures on the right.IMPRESSION:Lungs are mildly hyperinflated but free of acute infiltrates. Consistent with COPD in the appropriate clinical settingTHIS IS AN ELECTRONICALLY VERIFIED FINAL REPORT06/27/2024 7:55 AM - Electronically signed by Alok He MD
[2024-06-27] MEDS ORDERED: CONSULT PHARMACY - ANTIBIOTIC XX SCH (11:00)
[2024-06-27] MEDS: LEVAQUIN PREMIX IV 750 MG 750 MG/150 ML BAG IV SCH (13:41)
[2024-06-27 20:26] VITALS: RESP 18
[2024-06-28 06:26] LABS: BASOPHILS # (AUTO) 0.1 X10^3/uL (0.0-0.1); BASOPHILS % (AUTO) 1.6 % (0.2-1.0); EOSINOPHILS # (AUTO) 0.7 x10^3/uL (0.0-0.2); EOSINOPHILS % (AUTO) 8.2 % (0.9-2.9); HEMATOCRIT 25.8 % (36.0-47.0); HEMOGLOBIN 8.9 g/dL (12.0-16.0); LYMPHOCYTES # (AUTO) 0.7 X10^3/uL (1.3-2.9); LYMPHOCYTES % (AUTO) 8.2 % (21.0-51.0); MEAN CORPUSCULAR HEMOGLOBIN 30.1 pg (27.0-34.0); MEAN CORPUSCULAR HGB CONC 34.5 g/dL (33.0-35.0); MEAN CORPUSCULAR VOLUME 87.4 fL (80.0-100.0); MEAN PLATELET VOLUME 6.8 fL (7.4-11.0); MONOCYTES # (AUTO) 0.5 x10^3/uL (0.3-0.8); MONOCYTES % (AUTO) 6.7 % (0.0-13.0); NEUTROPHILS # (AUTO) 6.1 x10^3/uL (2.2-4.8); NEUTROPHILS % (AUTO) 75.3 % (42.0-75.0); PLATELET COUNT 471 X10^3/uL (150.0-450.0); RED BLOOD COUNT 2.95 X10^6/uL (3.5-5.4); RED CELL DISTRIBUTION WIDTH 14.4 % (11.6-16.5)
[2024-06-28 06:46] LABS: ALANINE AMINOTRANSFERASE 18 Units/L (12-78); ALBUMIN 1.6 g/dL (3.4-5.0); ALKALINE PHOSPHATASE 77 Units/L (46-116); ASPARTATE AMINO TRANSFERASE 45 Units/L (15-37); BLOOD UREA NITROGEN 19 mg/dL (7-18); CALCIUM 7.9 mg/dL (8.5-10.1); CARBON DIOXIDE 25.2 mmol/L (21-32); CHLORIDE 103 mmol/L (98-107); COR CA(FOR HYPOALB) 9.8 mg/dL (8.5-10.1); CREATININE 0.94 mg/dL (0.55-1.02); GLUCOSE 83 mg/dL (65-99); POTASSIUM 4.3 mmol/L (3.5-5.1); SODIUM 136 mmol/L (136-145); TOTAL PROTEIN 5.1 g/dL (6.4-8.2); eGFR NON BLACK RACES > 60 (>60)
[2024-06-28 07:41] VITALS: BMI 20.5
[2024-06-28] MEDS: PEPCID 20 MG VIAL 20 MG in NS 50 ML IV 50 ML IV ONE (09:26)
[2024-06-28] MEDS: KLOR-CON 10 MEQ TAB PO SCH (09:27)
[2024-06-28] MEDS: LASIX IVP ONE (09:27)
[2024-06-28] MEDS: HEMOCYTE PLUS PO SCH (09:27)
[2024-06-28] MEDS: VITAMIN B-12 INJ IM ONE (09:27)
[2024-06-28] MEDS ORDERED: LEVAQUIN PREMIX IV 750 MG 750 MG/150 ML BAG IV ONE (11:00)
[2024-06-28] MEDS: ELIQUIS PO SCH (12:37)
[2024-06-28 13:08] VITALS: BP 146/67; PULSE 72; TEMP 99; O2SAT 97
== END 2024-06-28 13:30 | DRG 699 ==
LOC: ER 11:24 → MED/SURG 14:53
PROVIDERS: ADMIT Internal Medicine; ATTEND Internal Medicine
DX: R53.1 Weakness; D64.89 Other specified anemias; J44.9 Chronic obstructive pulmonary disease, unspecified; R41.82 Altered mental status, unspecified; R00.0 Tachycardia, unspecified; N17.8 Other acute kidney failure; R06.02 Shortness of breath; B95.2 Enterococcus as the cause of diseases classified elsewhere; F41.8 Other specified anxiety disorders; R26.89 Other abnormalities of gait and mobility; N32.0 Bladder-neck obstruction; Z16.29 Resistance to other single specified antibiotic; R31.0 Gross hematuria; R79.1 Abnormal coagulation profile; E87.5 Hyperkalemia; R94.31 Abnormal electrocardiogram [ECG] [EKG]; E86.0 Dehydration; N39.0 Urinary tract infection, site not specified; Z98.890 Other specified postprocedural states; E87.1 Hypo-osmolality and hyponatremia; Z79.01 Long term (current) use of anticoagulants